=== PATIENT | male | born 1940 | race Caucasian/White ===

== ENCOUNTER 2023-07-16 08:33 | Emergency (ER) | payer OTHER ==
[~2023-07-16] VITALS: Ht 188 cm; Wt 75.0 kg
[2023-07-16] MEDS ORDERED: ALBU18HF12 IH (08:43)
[2023-07-16] MEDS ORDERED: METO50 PO (08:43)
[2023-07-16] MEDS ORDERED: SODIUM CHLORIDE 0.9% 2,250 ML IV ONE (09:00)
[2023-07-16] MEDS ORDERED: ACETAMINOPHEN 500 MG TABLET PO ONE (09:00)
[2023-07-16 09:13] LABS: HEMATOCRIT 26.7 % (41-53); MEAN CORPUSCULAR HEMOGLOBIN 28.7 pg (26.0-34.0); MEAN CORPUSCULAR HGB CONC 33.5 G/dL (31.0-37.0); MEAN CORPUSCULAR VOLUME 86 fL (80-100); PLATELET COUNT (AUTO) 110 K/uL (150-450); RED BLOOD CELL COUNT(AUTO) 3.12 MIL/uL (4.50-5.90); RED CELL DISTRIBUTION WIDTH 14.6 % (11.5-14.5)
[2023-07-16] MEDS ORDERED: ACETAMINOPHEN 650 MG/20.3 ML SOLUTION UDCUP PO ONE ×2 (09:15→17:15)
[2023-07-16 09:21] LABS: WHITE BLOOD COUNT (AUTO) 0.9 K/uL (4.5-11.0)
[2023-07-16 09:22] LABS: BAND NEUTROPHILS % (MANUAL) 0 % (0-5)
[2023-07-16 09:23] LABS: ANION GAP 14 mmol/L (8-16); CARBON DIOXIDE 20 mmol/L (22-29); CHLORIDE 97 mmol/L (98-107); CREATININE 1.39 mg/dL (0.60-1.30); GLOMERULAR FILTR. RATE CALC 49 mL/min (>60); GLUCOSE,RANDOM 124 mg/dL (70-110); POTASSIUM 3.7 mmol/L (3.5-5.1); SODIUM SERUM 131 mmol/L (136-145); UREA NITROGEN, BLOOD 20 mg/dL (7-18)
[2023-07-16] MEDS ORDERED: PIPERACILLIN/TAZO 3.375 GM/D5W 50 ML IV ONE (09:30)
[2023-07-16 09:32] LABS: TROPONIN I-HIGH SENSITIVITY 14 ng/L (<76)
[2023-07-16 09:33] LABS: LACTIC ACID 3.1 mmol/L (0.4-2.0)
[2023-07-16 09:38] LABS: ALANINE AMINOTRANSFERASE 43 U/L (12-78); ALKALINE PHOSPHATASE 100 U/L (46-116); ASPARTATE AMINOTRANSFERASE 29 U/L (15-37); BILIRUBIN,TOTAL 0.6 mg/dL (0.1-1.0); CREATINE KINASE, TOTAL ONLY 60 U/L (39-308); TOTAL PROTEIN, SERUM 6.8 g/dL (6.4-8.2)
[2023-07-16 09:42] LABS: LYMPHOCYTES % (MANUAL) 96 % (22-44); RBC MORPHOLOGY COMMENT NORMAL RBC MORPH; SEGMENTED NEUTROPHILS % 4 % (40-70); TOTAL CELLS COUNTED 100
[2023-07-16 09:48] LABS: COVID AG,FIA SOURCE NASAL SWAB
[2023-07-16 10:12] LABS: SARS-COV2 (COVID) ANTIGEN,FIA Negative (Negative)
[2023-07-16 10:14] LABS: INFLUENZA TYPE A NEGATIVE FOR TYPE A (NEGATIVE); INFLUENZA TYPE B NEGATIVE FOR TYPE B (NEGATIVE)
[2023-07-16 11:49] LABS: APPEARANCE,URINE CLEAR (CLEAR); BILIRUBIN,URINE NEGATIVE (NEGATIVE); COLOR,URINE LIGHT YELLOW (YELLOW); GLUCOSE, URINE (UA) NEGATIVE (NEGATIVE); KETONES,URINE NEGATIVE (NEGATIVE); LEUKOCYTE ESTERASE ,URINE NEGATIVE (NEGATIVE); NITRATE,URINE NEGATIVE (NEGATIVE); OCCULT BLOOD,URINE NEGATIVE (NEGATIVE); PROTEIN,URINE 30-70 mg/dL (NEGATIVE); UROBILINOGEN,URINE <=1.0 mg/dL (<=1.0)
[2023-07-16] MEDS ORDERED: VANCOMYCIN 1GM/WATER(PEG/NADA) 200 ML IV ONE (14:00)
[2023-07-17] MEDS ORDERED: SODIUM CHLORIDE 0.9% 1,000 ML IV ONE (08:45)
[2023-07-17] MEDS ORDERED: ALLO300T2 PO (08:48)
[2023-07-17] MEDS ORDERED: [UNRECOGNIZED DRUG - CODE] PO (08:48)
[2023-07-17] MEDS ORDERED: ATOR40TA71 PO (08:48)
[2023-07-17] MEDS ORDERED: TIOT4MIS2 IH (08:48)
[2023-07-17] MEDS ORDERED: METO-391 PO (08:48)
[2023-07-17] MEDS ORDERED: ASPI-1444 PO (08:48)
[2023-07-17] MEDS ORDERED: ALLOPURINOL 300 MG TABLET PO ONE (11:00)
[2023-07-17] MEDS ORDERED: METOPROLOL SUCCINATE 50 MG ER TABLET PO ONE (11:00)
[2023-07-17 13:20] VITALS: RESP 20
[2023-07-17] MEDS ORDERED: CARVEDILOL 6.25 MG TABLET PO ONE (13:45)
[2023-07-17 14:42] VITALS: TEMP 98.8
[2023-07-17 17:30] VITALS: BP 115/77; PULSE 101
== END 2023-07-17 17:50 | disposition left against medical advice (07) ==
LOC: EMS 08:35
DX: A41.9 Sepsis, unspecified organism (principal); D70.9 Neutropenia, unspecified; R50.81 Fever presenting with conditions classified elsewhere; J44.9 Chronic obstructive pulmonary disease, unspecified; I10 Essential (primary) hypertension; Z85.118 Personal history of other malignant neoplasm of bronchus and lung; Z20.822 Contact with and (suspected) exposure to COVID-19
CPT/HCPCS: 99291; 96365; 71045; 96367; 96361 ×2; 87426; 80053; 81003; 82550; 83605; 84484; 85025; 87040; 87804; 99292; 93005 ×2; 36415; J2543; Q9967; J7030